=== PATIENT | female | born 1985 | race Caucasian/White ===

== ENCOUNTER 2019-03-11 11:37 | Emergency (ER) | payer BC ==
[~2019-03-11] VITALS: Ht 157.5 cm; Wt 92.5 kg
--- NOTE | 2019-03-11 11:44 | NUR ---
PT TO BED 4 WITH STEADY GAIT
[2019-03-11 11:45] VITALS: BP 124/82
--- NOTE | 2019-03-11 12:14 | NUR ---
pt sent over from OBGYN office for evaluation of intermittent b/l pelvic cramping/tightness that started last night with some spotting this morning; pt denies any saturation of pads; A1; LMP 01/19/19. 6 weeks , WENDIE of 10/30/19. States some nausea. Denies vomiting, BM changes, chills, fever. States pain of 2/10 now. HX denies
--- NOTE | 2019-03-11 12:32 | NUR ---
PT AMBULATED TO BATHROOM WITH STEADY GAIT. WILL PROVIDE URINE SAMPLE.
--- NOTE | 2019-03-11 13:02 | NUR ---
DR. COURTNEY EVALUATING PT AT BEDSIDE
--- NOTE | 2019-03-11 13:41 | NUR ---
Ultrasound at bedside.
[2019-03-11 14:15] LABS: BASOPHILS % (AUTO) 0.5 % (0.0-2.0); EOSINOPHILS # (AUTO) 0.1 K/uL (0-0.4); EOSINOPHILS % (AUTO) 0.7 % (0.0-4.0); HEMATOCRIT 41.2 % (36-48); HEMOGLOBIN 13.8 g/dL (12.0-16.0); LYMPHOCYTES % (AUTO) 21.6 % (20.5-51.1); MEAN CORPUSCULAR HEMOGLOBIN 31 pg (27-31); MEAN CORPUSCULAR HGB CONC 34 g/dL (33-37); MEAN CORPUSCULAR VOLUME 92.7 fL (80-94); MONOCYTES # (AUTO) 0.7 K/uL (0.8-1.0); MONOCYTES % (AUTO) 6.9 % (1.7-9.3); NEUTROPHILS # (AUTO) 6.6 K/uL (1.8-7.7); NEUTROPHILS % (AUTO) 70.3 % (42.2-75.2); PLATELET COUNT (AUTO) 376 K/uL (140-450); RED BLOOD CELL COUNT(AUTO) 4.44 MIL/uL (4.20-5.40); RED CELL DISTRIBUTION WIDTH 12.5 % (11.6-13.7); WHITE BLOOD COUNT (AUTO) 9.4 K/uL (4.8-10.8)
[2019-03-11 14:20] LABS: APPEARANCE,URINE CLEAR (CLEAR); BILIRUBIN,URINE NEGATIVE (NEGATIVE); BLOOD, URINE NEGATIVE (NEGATIVE); COLOR,URINE YELLOW (YELLOW); LEUKOCYTE ESTERASE ,URINE NEGATIVE (NEGATIVE); NITRITE, URINE NEGATIVE (NEGATIVE); UGLUCOSE NEGATIVE (NEGATIVE)
--- NOTE | 2019-03-11 14:48 | NUR ---
Patient discharged with v/s stable. Written and verbal after care instructions given and explained. Patient verbalized understanding. Ambulatory with steady gait. All questions addressed prior to discharge. Advised to follow up with PMD.
[2019-03-11 14:49] VITALS: BP 113/76
== END 2019-03-11 14:48 | disposition home or self-care (01) ==
LOC: MED 11:37
DX: O20.9 Hemorrhage in early pregnancy, unspecified (principal); Z3A.01 Less than 8 weeks gestation of pregnancy
CPT/HCPCS: 36415; 76817; 81003; 81025; 84702; 85025; 86900; 86901; 99284; Q0092